=== PATIENT | male | born 1995 | race Caucasian/White ===

== ENCOUNTER 2017-02-20 06:45 | Emergency (ER) | payer OTHER ==
[~2017-02-20] VITALS: Ht 182.9 cm; Wt 104.3 kg
[2017-02-20] MEDS ORDERED: NORCO 5-325 TA1 EACH PO (07:56)
[2017-02-20] MEDS ORDERED: AUGMENTIN 875-1 EACH PO (08:48)
[2017-02-20 09:11] VITALS: BP 115/65
== END 2017-02-20 09:51 | disposition home or self-care (01) ==
LOC: ER 06:45
DX: S62.300B Unspecified fracture of second metacarpal bone, right hand, initial encounter for open fracture (principal); W54.0XXA Bitten by dog, initial encounter; Y93.89 Activity, other specified; Y92.89 Other specified places as the place of occurrence of the external cause; Y99.0 Civilian activity done for income or pay